=== PATIENT | male | born 2000 | race Caucasian/White ===

== ENCOUNTER 2020-04-21 02:29 | Emergency (ER) | payer SELFPAY ==
[~2020-04-21] VITALS: Ht 190.5 cm; Wt 81.0 kg
--- NOTE | 2020-04-21 02:42 | PHYS DOC ---
Past History Past Medical History: Anxiety, Bipolar, Depression, Other (MELISSA CALIXTO MD) Smoking: Cigarettes Alcohol Use: Occasionally Drug Use: Marijuana, Other (Polysubstance abuse in the past) (MELISSA CALIXTO MD) General Adult HPI: HPI: ".. I probably need to talk to someone .. about my thoughts of killing myself.. I ve had thoughts of how to do it... I been previously diagnosis of Bipolar.. and Anxiety.. I ve never in psych hospital... I was evaluated.. [facility] [place] [facility] [place] for Depression and Suicide.. .. I have cult my self in the past.. .. and used to do a lot of drugs.. when I was a teenager... I just getting really depressed.. I can't find a job any where,.. I been over to [place]walked up to [facility]... they are not hiring anywhere.. " Patient is a 20 year old male who presents with above hx and complaints of suicidal ideation. Patient denies any homicidal ideation. Patient states he has a long history of depression and and has been diagnosed with bipolar. Has in the past self cut. Patient has had antidepressant meds in the past. Patient states he has in the past used multiple drugs mainly when he was a teenager. Patient denies any legal entanglements or warrants. Cannot identify any specific event that has caused him become more depressed. Patient states he is attempted suicide seriously at least 4 times in the past 1 by cutting the other this by drug use. The patient denies any hallucinations. Patient denies any specific complaints of paranoid delusions. Patient denies any uses of drugs currently or alcohol. Patient does smoke. Patient denies any head trauma. Patient denies any fever or chills. Patient denies any specific contacts that are ill. Does have family in the [facility] but has not maintained contacts. (MELISSA CALIXTO MD) Review of Systems: Review of Systems: Constitutional: Denies fever or chills Eyes: Denies change in visual acuity HENT: Denies nasal congestion or sore throat Respiratory: Denies cough or shortness of breath Cardiovascular: Denies chest pain or edema GI: Denies abdominal pain, nausea, vomiting, bloody stools or diarrhea : Denies dysuria Musculoskeletal: Denies back pain or joint pain Integument: Denies rash Neurologic: Denies headache, focal weakness or sensory changes Endocrine: Denies polyuria or polydipsia Lymphatic: Denies swollen glands Psychiatric: Complains of depression, anxiety and suicidal ideation (MELISSA CALIXTO MD) Heart Score: HEART Score for Chest Pain: HEART Score for Chest Pain Response (Comments) Value History Slighlty/Non-Suspicious 0 ECG Normal 0 Age < 45 0 Risk Factors 1 or 2 Risk Factors 1 Total 1 Risk Factors: Risk Factors: DM, Current or recent (<one month) smoker, HTN, HLP, family history of CAD, obesity. Risk Scores: Score 0 - 3: 2.5% MACE over next 6 weeks - Discharge Home Score 4 - 6: 20.3% MACE over next 6 weeks - Admit for Clinical Observation Score 7 - 10: 72.7% MACE over next 6 weeks - Early Invasive Strategies (MELISSA CALIXTO MD) Family History: Family History: Had a older sister that had depressive disorder and also been diagnosed with b ipolar. Patient states his parents have not had mental health problems (MELISSA CALIXTO MD) Current Medications: Current Meds: See nursing for home meds (MELISSA CALIXTO MD) Allergies: Allergies: No known drug allergies (MELISSA CALIXTO MD) Physical Exam: PE: Constitutional: Moderately acute emotional distress, non-toxic appearance. [] HENT: Normocephalic, atraumatic, bilateral external ears normal, oropharynx moist, no oral exudates, nose normal. [] Eyes: PERRLA, EOMI, conjunctiva normal, no discharge. [] Neck: Normal range of motion, no tenderness, supple, no stridor. [] Cardiovascular:Heart rate regular rhythm, no murmur [] Lungs & Thorax: Bilateral breath sounds equal at apex with few scattered wheezes on auscultation [] Abdomen: Bowel sounds normal, soft, no tenderness, no masses, no pulsatile masses. Noncircumcised male. Testicles descended. Skin: Warm, dry, no erythema, areas of healing sunburn, some tenia. Back: No tenderness, no CVA tenderness. [] Extremities: No tenderness, no cyanosis, no clubbing, ROM intact, no edema. Multiple old self cutting quinn on left medial forearm Neurologic: Alert and oriented X 3, normal motor function, normal sensory function, no focal deficits noted. Was ambulatory without problems. DTRs +2 patellar brachial. Patient is right-hand dominant. No drift. Furnace Tapper equal. Psychologic: Affect anxious, judgement normal, mood depressed- suicidal ideation. Does not have any specific plan. (MELISSA CALIXTO MD) EKG: EKG: My interpretation EKG shows a sinus rhythm at 90 bpm. No findings of acute STEMI of contralateral changes. [] (MELISSA CALIXTO MD) Radiology/Procedures: Radiology/Procedures: My interpretation chest x-ray shows no acute cardiopulmonary findings. Does have some calcified granulomas. Basilar atelectasis vs atypical infiltrate. No significant consolidation. [][address] [address] IMAGING REPORT Signed PATIENT: BOO BLACKBURN ACCOUNT: [id number] : 2000 LOCATION: ER AGE: 20 SEX: M EXAM STATUS: REG ER ORD. PHYSICIAN: MELISSA CALIXTO MD REASON: cough PROCEDURE: PORTABLE CHEST 1V EXAM: CHEST 1 VIEW History: Cough COMPARISON: None available. TECHNIQUE: Single portable radiograph of the chest FINDINGS: The cardiac silhouette is unremarkable. Mild bibasilar lung airspace opacities. The costophrenic sulci are clear and well demarcated. IMPRESSION: Mild bibasilar lung airspace opacities likely atelectasis or infiltrates. Electronically signed by: Curt Allen MD (04/21/2020 3:35 AM) [id number] DICTATED AND SIGNED BY: CURT ALLEN MD DATE: 04/21/20 0335 CC: MELISSA CALIXTO MD; PCP,NO ~ (MELISSA CALIXTO MD) Course & Med Decision Making: Course & Med Decision Making Pertinent Labs and Imaging studies reviewed. (See chart for details) Pt. endorsed to Dr. Watts at shift change. He will make disposition of pt. See tele-psych report pending at shift change. Impression: 1. Suicidal ideation 2. History of bipolar disorder 3. History of depressive disorder 4. History of anxiety disorder 5. Tobacco use 6. History of polysubstance abuse 7. Hx of Self Cutting [] (MELISSA CALIXTO MD) Course & Med Decision Making Comprehensive signout received from off going physician Patient stable, no issues during my shift today Remains medically cleared, pending transfer to outlying psychiatric facility at this time Received word back at 1410 hours that patient was accepted to [facility], under the care of Dr. Kay Patient updated of this status, still agreeable to transfer voluntarily via EMS for further inpatient psychiatric care (MIYA WATTS DO) Dragon Disclaimer: Dragon Disclaimer: This electronic medical record was generated, in whole or in part, using a voice recognition dictation system. (MELISSA CALIXTO MD) Departure Departure: Impression: Primary Impression: Suicidal ideation Disposition: 65 XFER TO PSYCH HOSP/UNIT ([facility] psych) Admitting Physician: Other (Dr. Kay) (MIYA WATTS DO) Condition: STABLE Referrals: PCP,NO (PCP) Justification of Admission: Justification of Admission: Justification of Admission Dx: Yes Comments: SI- Transfer or ref. Psych facility for care (MELISSA CALIXTO MD) Justification of Admission Dx: Yes (Active suicidal ideation with plan, need for inpatient psychiatric care) (MIYA WATTS DO) Dragon Disclaimer This chart was dictated in whole or in part using Voice Recognition software in a busy, high-work load, and often noisy Emergency Department environment. It may contain unintended and wholly unrecognized errors or omissions. (MELISSA CALIXTO MD) MELISSA CALIXTO MD Apr 21, 2020 02:42 MIYA WATTS DO Apr 21, 2020 14:16
[2020-04-21] MEDS ORDERED: IV RINGERS SOLUTION,LACTATED 1,000 ML IV SCH (03:30)
[2020-04-21 03:37] LABS: BASO # 0.1 x10^3/uL (0.0-0.2); BASO % 1 % (0-3); EOS # 0.3 x10^3/uL (0.0-0.7); EOS % 4 % (0-3); HEMATOCRIT 46.3 % (39.0-53.0); HEMOGLOBIN 15.5 g/dL (13.0-17.5); LYMPH # 2.1 x10^3/uL (1.0-4.8); LYMPH % 27 % (24-48); MEAN CORPUSCULAR HEMOGLOBIN 31 pg (25-35); MEAN CORPUSCULAR HGB CONC 33 g/dL (31-37); MEAN CORPUSCULAR VOLUME 92 fL (79-100); MONO # 0.6 x10^3/uL (0.0-1.1); MONO % 7 % (0-9); NEUT # 4.7 x10^3uL (1.8-7.7); NEUT % 61 % (31-73); PLATELET COUNT 255 x10^3/uL (140-400); RED BLOOD COUNT 5.01 x10^6/uL (4.30-5.70); RED CELL DISTRIBUTION WIDTH 14.4 % (11.5-14.5); WHITE BLOOD COUNT 7.7 x10^3/uL (4.0-11.0)
--- NOTE | 2020-04-21 03:38 | RAD ---
EXAM: CHEST 1 VIEW History: Cough COMPARISON: None available. TECHNIQUE: Single portable radiograph of the chest FINDINGS: The cardiac silhouette is unremarkable. Mild bibasilar lung airspace opacities. The costophrenic sulci are clear and well demarcated. IMPRESSION: Mild bibasilar lung airspace opacities likely atelectasis or infiltrates. Electronically signed by: Curt Allen MD (04/21/2020 3:35 AM) [id number]
[2020-04-21 03:50] LABS: CALCIUM 8.9 mg/dL (8.5-10.1); CREATININE 0.8 mg/dL (0.7-1.3); GFR 123.2
[2020-04-21 03:55] LABS: DIRECT BILIRUBIN 0.2 mg/dL (0.0-0.2); MAGNESIUM 2.1 mg/dL (1.8-2.4); TOTAL BILIRUBIN 0.6 mg/dL (0.2-1.0); TOTAL PROTEIN 7.3 g/dL (6.4-8.2)
--- NOTE | 2020-04-21 03:55 | EKG ---
[address] [address] Test Date: 2020-04-21 Test Time: 03:14:59 Pat Name: BOO BLACKBURN Department: Room: Gender: M Product Expert: SERGIO : 2000 Requested By: MELISSA CALIXTO Order Number: [id number] Reading MD: Measurements Intervals [place] Rate: 90 P: 43 AK: 122 QRS: 86 QRSD: 98 T: 68 QT: 334 QTc: 412 Interpretive Statements SINUS RHYTHM OTHERWISE NORMAL ECG RI6.02 No previous ECG available for comparison
[2020-04-21 04:14] LABS: ACETAMIN < 2.0 mcg/mL (10-30); SALIC < 2.8 mg/dL (2.8-20.0)
[2020-04-21 04:15] LABS: ETHANOL < 10 mg/dL (0-10)
[2020-04-21 05:40] LABS: BACTERIA,URINE 0 /HPF (0-FEW); BILIRUBIN,URINE NEG (NEG); CLARITY,URINE CLEAR; COLOR,URINE YELLOW; GLUCOSE,URINE NEG (NEG); NITRITE,URINE NEG (NEG); RBC,URINE 0 /HPF (0-2); SQUAMOUS EPITHELIAL CELL,UR OCC /LPF; WBC,URINE RARE /HPF (0-4)
[2020-04-21 05:41] LABS: AMORPHOUS SEDIMENT,UR PRESENT /HPF; BARBITURATES NEG (NEG); BENZODIAZEPINES NEG (NEG); CANNABINOIDS POS (NEG); COCAINE NEG (NEG); METHADONE NEG (NEG); OPIATES NEG (NEG); PHENCYCLIDINE NEG (NEG)
[2020-04-21 05:42] LABS: AMPHETAMINE/METHAMPHETAMINE NEG (NEG)
[2020-04-21 15:24] VITALS: BP 114/53
== END 2020-04-21 16:16 ==
LOC: ER 02:29
DX: R45.851 Suicidal ideations (principal); F31.9 Bipolar disorder, unspecified; F41.9 Anxiety disorder, unspecified; F19.10 Other psychoactive substance abuse, uncomplicated; Z91.5 Personal history of self-harm; F17.210 Nicotine dependence, cigarettes, uncomplicated
CPT/HCPCS: 36415; 71045; 80048; 80076; 80307; 80329; 81001; 82550; 83690; 83735; 84443; 84484; 85025; 85610; 85730; 93005; 96360; 99285; G0480; J7120

== ENCOUNTER 2021-03-27 21:52 | Emergency (ER) | payer SELFPAY ==
[~2021-03-27] VITALS: Ht 190.5 cm; Wt 65.9 kg
--- NOTE | 2021-03-27 23:11 | PHYS DOC ---
Past History Past Medical History: Anxiety, Bipolar, Depression, Other Additional Past Medical Histor: Has been seen for this in the past "a few years ago" Past Surgical History: No Surgical History Smoking: Cigarettes Alcohol Use: Occasionally Drug Use: Marijuana, Other General Adult EDM: Chief Complaint: SUICIDAL IDEATION HPI: HPI: 21-year-old male with a history of bipolar disorder, depression presents to the emergency department complaining of suicidal ideation with plan to jump off a bridge or get run over by traffic. He reports previous suicidal ideations with attempt. He denies any homicidal ideations, drug use, alcohol use, medication overdose. He does not take medication. He denies any other medical complaints tonight. He denies any inciting events. The patient denies nausea, vomiting, fever, chills, chest pain, shortness of breath, abdominal pain, urinary symptoms, cough, recent trauma, or any other complaints. Review of Systems: Review of Systems: Constitutional: Denies fever or chills. Eyes: Denies change in vision, pain. HENT: Denies congestion or sore throat. Respiratory: Denies cough or shortness of breath. Cardiovascular: Denies chest pain or edema. GI: Denies abdominal pain, nausea. : Denies change in urination, dysuria. Musculoskeletal: Denies extremity pain, or trauma. Skin: Denies rash, skin change. Neurologic: Denies headache, focal weakness. Psychiatric: Admits to suicidal ideation, depression All other systems reviewed as negative except for what was mentioned in the HPI. Family History: Family History: non contributory Allergies: Allergies: Allergies Coded Allergies Type Severity Reaction Last Updated Verified No Known Drug Allergies 04/21/20 No Physical Exam: PE: General: No acute distress. HEENT: Normocephalic, Normal hearing. Visual acuity grossly intact. Neck: Supple, Full range of motion without tenderness. Respiratory: Airway intact, normal phonation, vocalizing. No signs of accessory muscle use or respiratory distress. Cardiovascular: Normal rate, Extremities appear well perfused. Musculoskeletal: Normal range of motion. No deformity. Ambulatory. Integumentary: No pallor, No jaundice. Neurologic: Alert, Oriented. Moves all extremities independently. Psychiatric: Cooperative, admits to feeling suicidal Current Patient Data: Labs: Laboratory Tests Test 03/27/21 22:16 03/27/21 23:30 Urine Opiates Screen Neg (NEG) Urine Methadone Screen Neg (NEG) Urine Barbiturates Neg (NEG) Urine Phencyclidine Screen Neg (NEG) Urine Amphetamine/Methamphetamine Neg (NEG) Urine Benzodiazepines Screen Neg (NEG) Urine Cocaine Screen Neg (NEG) Urine Cannabinoids Screen Pos (NEG) Urine Ethyl Alcohol Neg (NEG) White Blood Count 4.7 x10^3/uL (4.0-11.0) Red Blood Count 4.42 x10^6/uL (4.30-5.70) Hemoglobin 13.8 g/dL (13.0-17.5) Hematocrit 40.6 % (39.0-53.0) Mean Corpuscular Volume 92 fL (79-100) Mean Corpuscular Hemoglobin 31 pg (25-35) Mean Corpuscular Hemoglobin Concent 34 g/dL (31-37) Red Cell Distribution Width 13.5 % (11.5-14.5) Platelet Count 153 x10^3/uL (140-400) Neutrophils (%) (Auto) 71 % (31-73) Lymphocytes (%) (Auto) 14 % (24-48) L Monocytes (%) (Auto) 14 % (0-9) H Eosinophils (%) (Auto) 0 % (0-3) Basophils (%) (Auto) 0 % (0-3) Neutrophils # (Auto) 3.3 x10^3uL (1.8-7.7) Lymphocytes # (Auto) 0.7 x10^3/uL (1.0-4.8) L Monocytes # (Auto) 0.7 x10^3/uL (0.0-1.1) Eosinophils # (Auto) 0.0 x10^3/uL (0.0-0.7) Basophils # (Auto) 0.0 x10^3/uL (0.0-0.2) Sodium Level 136 mmol/L (136-145) Potassium Level 3.6 mmol/L (3.5-5.1) Chloride Level 101 mmol/L (98-107) Carbon Dioxide Level 27 mmol/L (21-32) Anion Gap 8 (6-14) Blood Urea Nitrogen 8 mg/dL (8-26) Creatinine 0.8 mg/dL (0.7-1.3) Estimated GFR (Cockcroft-Gault) 122.0 Glucose Level 123 mg/dL (70-99) H Calcium Level 7.4 mg/dL (8.5-10.1) L Ethyl Alcohol Level < 10 mg/dL (0-10) Vital Signs: Vital Signs Date Time Temp Pulse Resp B/P (MAP) Pulse Ox O2 Delivery O2 Flow Rate FiO2 03/27/21 22:04 99.0 80 20 108/66 99 Room Air Heart Score: C/O Chest Pain: No Course & Med Decision Making: Course & Med Decision Making Patient had a PAT team evaluation, determined that the patient meets inpatient criteria. Patient was accepted by [facility]. He is pending transfer at 0225. Out of our ED with EMS at 0327 Departure Departure: Impression: Primary Impression: Suicidal ideations Disposition: [address] [place] [address] ([facility]) Condition: STABLE Referrals: PCP,GRETA (PCP) ALESHIA ROBLES DO Mar 27, 2021 23:11
[2021-03-27 23:48] LABS: BASO % 0 % (0-3); EOS % 0 % (0-3); HEMATOCRIT 40.6 % (39.0-53.0); HEMOGLOBIN 13.8 g/dL (13.0-17.5); LYMPH # 0.7 x10^3/uL (1.0-4.8); LYMPH % 14 % (24-48); MEAN CORPUSCULAR HEMOGLOBIN 31 pg (25-35); MEAN CORPUSCULAR HGB CONC 34 g/dL (31-37); MEAN CORPUSCULAR VOLUME 92 fL (79-100); MONO # 0.7 x10^3/uL (0.0-1.1); MONO % 14 % (0-9); NEUT # 3.3 x10^3uL (1.8-7.7); NEUT % 71 % (31-73); PLATELET COUNT 153 x10^3/uL (140-400); RED BLOOD COUNT 4.42 x10^6/uL (4.30-5.70); RED CELL DISTRIBUTION WIDTH 13.5 % (11.5-14.5); WHITE BLOOD COUNT 4.7 x10^3/uL (4.0-11.0)
[2021-03-28] LABS: CALCIUM 7.4 mg/dL (8.5-10.1); CREATININE 0.8 mg/dL (0.7-1.3); POTASSIUM 3.6 mmol/L (3.5-5.1)
[2021-03-28 00:02] LABS: BARBITURATES NEG (NEG); BENZODIAZEPINES NEG (NEG); CANNABINOIDS POS (NEG); COCAINE NEG (NEG); METHADONE NEG (NEG); OPIATES NEG (NEG); PHENCYCLIDINE NEG (NEG)
[2021-03-28 00:03] LABS: AMPHETAMINE/METHAMPHETAMINE NEG (NEG)
[2021-03-28 02:01] VITALS: BP 115/49
== END 2021-03-28 03:29 ==
LOC: ER 21:52
DX: R45.851 Suicidal ideations (principal); F31.9 Bipolar disorder, unspecified; F41.9 Anxiety disorder, unspecified; F12.10 Cannabis abuse, uncomplicated; F17.210 Nicotine dependence, cigarettes, uncomplicated; Z20.822 Contact with and (suspected) exposure to COVID-19
CPT/HCPCS: 80048; 80307; 85025; 87426; 99285; C9803; G0480; U0003